=== PATIENT | male | born 1940 | race Caucasian/White ===

== ENCOUNTER 2020-09-25 22:31 | Observation (INO) | payer MEDICARE ==
[~2020-09-25] VITALS: Ht 190.5 cm; Wt 119.4 kg
[2020-09-25] MEDS ORDERED: PLAVIX75 MG PO (23:23)
[2020-09-25] MEDS ORDERED: ELIQUIS5 MG PO ×2 (23:23→23:33)
[2020-09-25] MEDS ORDERED: METOPROLOL TART25 MG PO ×2 (23:24→23:34)
[2020-09-25] MEDS ORDERED: KLOR-CON 1010 MEQ PO (23:25)
[2020-09-25] MEDS ORDERED: ESCITALOPRAM OX10 MG PO (23:26)
[2020-09-25] MEDS ORDERED: LISINOPRIL20 MG PO (23:26)
[2020-09-25] MEDS ORDERED: LEVOTHYROXINE200 MC2 PO (23:27)
[2020-09-25] MEDS ORDERED: LIOTHYRONINE S25 MCG PO (23:28)
[2020-09-25] MEDS ORDERED: LASIX40 MG PO (23:29)
[2020-09-25] MEDS ORDERED: BASAGLAR K100 UNIT/1 SUB-Q (23:31)
[2020-09-25] MEDS ORDERED: DIAZEPAM5 MG PO (23:32)
[2020-09-25] MEDS ORDERED: ATORVASTATIN CA80 MG PO (23:33)
--- NOTE | 2020-09-26 02:13 | NUR ---
PT ARRIVES TO FLOOR VIA STRETCHER. PT AMBULATES TO THE BATHROOM WITH FWW AND BACK TO BED. TOLERATED WELL. ADMISSION PROCESS COMPLETE. PT ORIENTED TO ROOM AND POC FOR THIS SHIFT. EDUCATION REGARDING CALL LIGHT USE PROVIDED. PT STATES UNDERSTANDING. FURTHER NEEDS DENIED AT THIS TIME. CALL LIGHT IN REACH.
--- NOTE | 2020-09-26 02:14 | NUR ---
pt admitted at 0137 from ed via stretcher, ambulated to br, voided medium colored urine. used walker, tolerated well, back to bed. alert and oriented, CPOX in place, IVf infusing well, Tele#[address], afib rhythm. SENECA wears bilat hearing aids, coop with admission. fluids and jellow given, CBG done on admit per nursing judgement 92. Oriented to room, procedures and equipment coop and follows instructins well
--- NOTE | 2020-09-26 03:52 | NUR ---
O2 3.5L on, resting, hob elevated, no distress, CPOX in place sats 96%. IVF infusing w/o problems.
--- NOTE | 2020-09-26 05:50 | NUR ---
Resting, O2 3.5L NC, tele#[address], SBrady at 35 non sustained, awakes easily, denies CP or SOB
--- NOTE | 2020-09-26 06:29 | NUR ---
Pt admitted early this am from ED, pt alert and oriented. light drif of left arms and bilat legs noted. 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 no lightheadnes, got up to br, voided QS, back to bed using walker. tolered well. On O2 3.5LNC. pt stated he uses CPAP at home and can not sleep without it. CPOX in place sats 100%, no distress noted. IVF infusing w/o problems. call light and fluids at bedside. no speech problems, uses hearing aids, [place]. pleasant, alert and oriented
--- NOTE | 2020-09-26 06:32 | EKG ---
[facility] [address] [facility] [place], [place] [address] Signed Atrial flutter with variable AV block Right bundle branch block Inferior infarct , age undetermined Abnormal ECG No previous ECGs available Confirmed by CARMITA FERREIRA MD ([id number] on 09/26/2020 6:32:20 AM Electronically Signed By: CARMITA FERREIRA MD 09/26/20 0632 PATIENT NAME: GEOFFREY HOBBS Electrocardiogram DATE OF : 40 PHYSICIAN: CARMITA FERREIRA MD REPORT #: [id number] REPORT IS CONFIDENTIAL AND NOT TO BE RELEASED WITHOUT AUTHORIZATION
--- NOTE | 2020-09-26 08:30 | NUR ---
REPORT RECEIVED FROM NIGHT RN AND PT. CARE RESUMED. PT. IS ALERT AND ORIENTED. VERY [place] AND HEARING AIDS NOT CHARGED. LEFT FACIAL DROOP AND LEFT HAND BRANCH MAKER WEAKNESS PRESENT. SLIGHT SLUR NOTED AND PT. STATES IT IS DUE TO LOOSE DENTURES. HIS HR. IS IRREGULAR FROM 40'S TO 60'S. IV SITE WNL AND FLUSHES WELL. LAC. PRESENT ON LEFT CHEEK AND ABRASIONS TO LEFT ARM LEG THAT HE ATTRIBUTES TO A FALL A WEEK AGO. BLE ARE DRY AND DARKENED. DISCUSSED SAFETY, POC AND MEDS. P.T. IN THE ROOM TO WORK WITH PT.
[2020-09-26] MEDS ORDERED: EUTHYROX200 MCG PO (10:13)
[2020-09-26] MEDS ORDERED: POTASSIUM CHLO10 MEQ PO (10:15)
--- NOTE | 2020-09-26 11:27 | NUR ---
DID PATIENT'S BLOOD SUGAR CHECK FOR BREAKFAST. CHANGED HIS BED LINENS. PATIENT IS SITTING UP IN HIS CHAIR.
--- NOTE | 2020-09-26 11:31 | NUR ---
MED REC COMPLETE
--- NOTE | 2020-09-26 11:46 | NUR ---
BLOOD GLUCOSE WAS 141 AND 1 UNIT OF HUMALOG ADMIN. PT. WAS COUGHING WHILE EATING AND EVENTUALLY CLEARED THROAT. WILL CONTINUE TO MONITOR
--- NOTE | 2020-09-26 12:36 | NUR ---
PT. AMBULATED 2X AROUND THE UNIT AND TOLERATED WELL. DENIES DIZZINESS OR BEING LIGHT HEADED. HR STAYED IN THE 80'S WHILE AMBULATING IN SR.
--- NOTE | 2020-09-26 14:02 | NUR ---
ALL DISCHARGE INSTRUCTIONS REVIEWED AND QUESTIONS ANSWERED. PT. DENIES PAIN, DIZZINESS. IV REMOVED WITH CATH. INTACT. PT. LEFT WITH FRIEND AND WET CHAR CONVEYOR TENDER VIA WHEELCHAIR WITH ALL BELONGINGS TO VEHICLE.
--- NOTE | 2020-09-26 18:45 | NUR ---
PATIENT SAID HE WOULD LIKE TO TAKE A SHOWER. SO I SET HIM UP FOR A SHOWER. BEFORE HE WAS DISCHARGED TODAY. ALSO TOOK OUT HIS IV AFTER NURSE AND PHARMACIST WERE DONE TALKING TO PATIENT.
== END 2020-09-26 13:57 | disposition home or self-care (01) ==
LOC: ED 22:31 → MS 22:33
PROVIDERS: ADMIT Internal Medicine; ATTEND Internal Medicine
DX: G45.9 Transient cerebral ischemic attack, unspecified (principal); I48.92 Unspecified atrial flutter; E11.51 Type 2 diabetes mellitus with diabetic peripheral angiopathy without gangrene; R91.1 Solitary pulmonary nodule; G47.33 Obstructive sleep apnea (adult) (pediatric); I12.9 Hypertensive chronic kidney disease with stage 1 through stage 4 chronic kidney disease, or unspecified chronic kidney disease; E11.22 Type 2 diabetes mellitus with diabetic chronic kidney disease; N18.9 Chronic kidney disease, unspecified; Z20.822 Contact with and (suspected) exposure to COVID-19; E78.5 Hyperlipidemia, unspecified; I25.2 Old myocardial infarction; Z86.73 Personal history of transient ischemic attack (TIA), and cerebral infarction without residual deficits; Z79.01 Long term (current) use of anticoagulants; Z87.891 Personal history of nicotine dependence; Z79.4 Long term (current) use of insulin
CPT/HCPCS: 70450; 70496; 70498; 71045; 80053; 83735; 84484; 85025; 85610; 85730; 93005; 93010; 97162; 99285-25; A9270; C9803; G0378; J1815; J3480; J7030; Q9967; U0003